=== PATIENT | female | born 1950 | race Caucasian/White ===

== ENCOUNTER → 2018-01-02 12:44 | Outpatient (CLI) | payer MEDICARE, OTHER, SELFPAY ==
--- NOTE | 2018-01-02 12:54 | HPBI_ITS ---
MAMMOGRAPHY - BILATERAL SCREENING REASON FOR EXAM: Female, 67 years old. Routine annual screening examination. PERTINENT HISTORY: Mother with breast cancer. TECHNIQUE: Digital bilateral breast bautista (3D mammographic acquisition) in the CC and MLO projections. 2-D mediolateral oblique (MLO) and craniocaudad (CC) views of both breasts were obtained. CAD: Full Field Digital Mammography with Computer Added Detection was performed. COMPARISON: Comparison is made with prior study dated May 09, 2016. FINDINGS: Breast Composition: There are scattered areas of fibroglandular density. There are no dominant masses or suspicious calcifications. Stable benign-appearing bilateral axillary lymph nodes. No other significant abnormalities are identified. There has been no significant change since the prior study. HPBI/SCREENING MAMM (CAD), BILAT IMPRESSION: Stable bilateral screening mammogram. Yearly follow-up mammogram recommended. (A) ASSESSMENT CATEGORY: BIRADS Category 2: Benign. A letter regarding these results will be sent to the patient by the facility within 30 days. Approximately 10% of breast cancers are not detected by mammography. A normal mammogram should not delay biopsy of a clinically suspicious abnormality. [id number] Electronically Signed: Konrad Ham MD at 14:25 EST Tel [phone], Service support ,
--- NOTE | 2018-01-02 12:57 | HPBD_ITS ---
STUDY: DUAL ENERGY X-RAY ABSORPTIOMETRY / DXA REASON FOR EXAM: Female, 67 years old. The patient is postmenopausal. Loss of height. TECHNIQUE: Bone Mineral Density (BMD) measurements of lumbar spine and bilateral hips were obtained. COMPARISON: Comparison is made with prior study dated September 01, 2015. FINDINGS: Lumbar Spine (L1-L4): g/cm2 (1.142) / T-score (-0.2) / Z-score (1.4) Findings are suggestive of normal bone density with a low fracture risk. Left Femur Total: g/cm2 (1.198) / T-score (1.5) / Z-score (2.8) Left Femoral Neck: g/cm2 (1.188) / T-score (1.1) / Z-score (2.7) Right Femur Total: g/cm2 (1.211) / T-score (1.6) / Z-score (2.9) Right Femoral Neck: g/cm2 (1.112) / T-score (0.4) / Z-score (2.1) The T-Scores on the most recent prior examination were: Lumbar Spine (L1-L4): There has been worsening of bone density since the previous examination. Left Femur Total: which represents an improvement of 3.8%. Right Femur Total: which represents no significant change. . HPBD/Dexa Bone Density Study (HP) IMPRESSION: The patient is considered normal as outlined below according to World Nomi Organization (WHO) criteria with a low fracture risk. There has been improvement of bone density since the previous examination. Reference Information: The T-score is the number of standard deviations above or below the standard which is normal for young adults at their peak bone mineral density. The World Health Organization (WHO) interprets the T-scores as follows: Above -1 Normal bone density Between -1 and -2.5 Osteopenia Equal to / or below -2.5 Osteoporosis As a practical clinical guideline, osteopenia may be graded as follows: Mild -1 through -1.5 Moderate -1.6 through -2.0 Severe -2.1 through -2.4 The Z-score is the number of standard deviations above or below age-matched controls. A Z-score of less than -1.5 would be considered abnormal. References: 1. NIH Osteoporosis and Related Bone Diseases http://www.osteo.org 2. International Society for Clinical Densitometry http://www.iscd.org 3. National Osteoporosis Foundation http://www.nof.org Electronically Signed: Konrad Ham MD at 15:16 EST Tel [phone], Service support ,
== END ==
PROVIDERS: Family Provider Internal Medicine; PCP Internal Medicine; Visit Provider Internal Medicine
DX: Z12.31 Encounter for screening mammogram for malignant neoplasm of breast (principal); Z78.0 Asymptomatic menopausal state
CPT/HCPCS: 77063; 77067; 77080

== ENCOUNTER 2018-04-15 09:05 | Emergency (ER) | payer MEDICARE, OTHER, SELFPAY ==
[2018-04-15 09:06] VITALS: BP 192/126; PULSE 75; RESP 16; TEMP 36.5; O2SAT 99; BMI 26.8
[2018-04-15 09:14] VITALS: O2SAT 98
--- NOTE | 2018-04-15 09:19 | RAD_ITS ---
STUDY: X-RAY CHEST REASON FOR EXAM: Female, 67 years old. Shortness of breath and tachycardia. TECHNIQUE: Single AP portable view of the chest. COMPARISON: None. FINDINGS: EKG electrodes are seen. The lungs are clear and expanded. There is no demonstrated pleural abnormality. Normal size heart. Normal mediastinum and lei. Normal visualized pulmonary arteries. There is atherosclerotic tortuosity of the aortic arch and descending thoracic aorta. Normal visualized thoracic spine. Normal visualized ribs, clavicles, and shoulders. There is no demonstrated abnormality of the visualized soft tissue structures of the upper abdomen. RAD/Chest 1 View (Portable) IMPRESSION: No acute abnormality is present. Electronically Signed: Konrad Ham MD at 10:10 EDT Tel [phone], Service support ,
--- NOTE | 2018-04-15 09:19 | EKG12_ITS ---
Test Reason : SOB Blood Pressure : / mmHG Vent. Rate : 062 BPM Atrial Rate : 062 BPM P-R Int : 120 ms QRS Dur : 090 ms QT Int : 414 ms P-R-T Axes : 050 022 021 degrees QTc Int : 420 ms Normal sinus rhythm Nonspecific ST abnormality Abnormal ECG Confirmed by ALLA MCKEON, JESS ([id number]), research editor RUFINO MOLINA ([id number]) on 04/17/2018 8:56:39 AM Referred By: SHAY Confirmed By:JESS GOLD MD
[2018-04-15 09:38] VITALS: PULSE 62; RESP 16
[2018-04-15 09:38] LABS: Absolute Neutrophil Count 3.1 X10^3/uL (2.0-7.7); Basophil# 0.04 X10^3/uL; Basophil% 0.8 % (0-1); Eosinophil# 0.14 X10^3/uL; Eosinophils% 2.7 % (0-5); Hematocrit 44.1 % (37-47); Mean Corpuscular Hgb 33.5 pg (27.0-32.0); Mean Corpuscular Volume 98.4 fL (81-99); Mean Platelet Vol. 8.8 fl (6.2-12.0); Monocyte# 0.48 X10^3/uL; Monocyte% 9.3 % (0-10); Neutrophil # 3.11 X10^3/uL (2.7-7.7); Platelet Count 190 K/mm3 (150-450); RBC Distribution Width SD 43.1 fl (35.1-43.9); Red Blood Count 4.48 M/mm3 (4.2-5.4); White Blood Count 5.2 K/mm3 (4.4-11.0)
[2018-04-15] MEDS: Ipratropium/Albuterol Sulfate 3 ML AMPUL.NEB INHALATION (09:38)
[2018-04-15 09:39] LABS: POSITIVE COUNT NO; POSITIVE DIFFERENTIAL NO; POSITIVE MORPHOLOGY NO
[2018-04-15 10:01] LABS: Anion Gap 10 (5-15); BUN 23 mg/dL (7-18); BUN/Creat Ratio 41.4 RATIO (10-20); Calcium,Total 9.1 mg/dL (8.5-10.1); Chloride 104 mmol/L (98-107); Creatinine, Serum 0.56 mg/dL (0.55-1.02); EST Glomerular Filtration Rate 116 mL/min (>60); Est Glom Filt Rate - Afr Amer 140 mL/min (>60); Estimated Creatinine Clearance 49.12 ml/min; Glucose 98 mg/dL (74-106); Potassium 3.3 mmol/L (3.5-5.1); Sodium Level 142 mmol/L (136-145)
--- NOTE | 2018-04-15 10:43 | ED.DCSUM_ITS ---
- ER Visit Summary Date of Service: 04/15/18 Chief Complaint: [Shortness of breath] History of Present Illness: The patient is a 67 F [presents the emergency department complaint of shortness of breath that started this morning upon awakening. Patient states that she felt like maybe her heart was racing and she checked her pulse and it was in the mid 80s. Patient states this is fast for her. Patient also states that she just feels like she cannot get a full deep breath. She denies any chest pain. Patient states that she has been under increased stress of late as her sisters been sick. Patient denies recent illness. Patient denies fever or cough. Patient has not had recent travel or surgery.] Physical Examination: [HEENT-PERRLA, EOMI. Cranial nerves II through XII grossly intact. TMs clear. Mucous membranes moist. No adenopathy. Cardiovascular-regular rate and rhythm without murmur or ectopy Lungs-clear to auscultation, chest wall stable without crepitus or subcu emphysema Abdomen-normoactive bowel sounds, soft, nontender, no rebound or rigidity, no peritoneal signs. Extremities-intact ?4, normal range of motion, normal pulses, atraumatic]. Negative Homans sign. Test Results: [EKG obtained on arrival showed sinus rhythm with a ventricular rate of 62 bpm with some nonspecific ST changes noted. CBC with differential was normal. Chemistries unremarkable other than a slightly depressed potassium at 3.3 for which she refused any potassium here as she states she has some potassium at home she can take. Troponin was less than 0.015. D-dimer was 0.60 and when adjusted for age is considered normal. Patient's chest x-ray was normal.] Emergency Department Course and Treatment: [Patient given a breathing treatment however she does not feel that that made any difference in her symptomatology. Patient states that she feels much improved overall and feels that just being here in a safe environment has helped her. Patient states that she does feel just will be jittery or anxious but overall feels much improved.] Treatment Plan: [I had a long discussion with the patient and to discuss possible admission for further workup and evaluation of her dyspnea such as trying to rule out cardiac etiology. Patient feels that her symptoms are likely anxiety related and does not want to be admitted at this point. Patient has not been having exertional dyspnea or chest pain. Patient is comfortable with going home and following up with her primary care physician or return if symptoms return or worsen.] Disposition: [Discharged home in stable condition.] Impression: [Dyspnea-resolved Anxiety] This note was generated with [employer] dictation software. It may contain incorrect words, spelling, and punctuation that were not noted in review of the chart prior to signing ED Disposition - Plan for ED Patient: Chief Complaint: Shortness of Breath Referrals: Jerrica Solis DO [Primary Care Provider] -
--- NOTE | 2018-04-15 10:43 | ED.DEP ---
ED Disposition - Plan for ED Patient: Chief Complaint: Shortness of Breath Instructions: ED Dyspnea Shortness of Breath, ED Stress React Referrals: Jerrica Solis DO [Primary Care Provider] - 3-5 Days
[2018-04-15 10:51] VITALS: BP 157/86; PULSE 83; RESP 16; O2SAT 98
== END 2018-04-15 10:51 | disposition home or self-care (01) ==
LOC: ED 09:23
PROVIDERS: Emergency Provider Emergency Medicine; Family Provider Internal Medicine; PCP Internal Medicine
DX: R06.00 Dyspnea, unspecified (principal); F41.9 Anxiety disorder, unspecified; E87.6 Hypokalemia; I10 Essential (primary) hypertension; Q21.1 Atrial septal defect; Z79.899 Other long term (current) drug therapy
CPT/HCPCS: 71045; 80048; 84484; 85025; 85379; 93005; 94640; 99284; A4216

== ENCOUNTER → 2018-06-18 15:28 | Outpatient (CLI) | payer MEDICARE, OTHER, SELFPAY ==
[2018-06-18 17:28] LABS: Anion Gap 12 (5-15); BUN 20 mg/dL (7-18); BUN/Creat Ratio 34.6 RATIO (10-20); Calcium,Total 9.2 mg/dL (8.5-10.1); Chloride 103 mmol/L (98-107); Creatinine, Serum 0.58 mg/dL (0.55-1.02); EST Glomerular Filtration Rate 110 mL/min (>60); Est Glom Filt Rate - Afr Amer 133 mL/min (>60); Glucose 101 mg/dL (74-106); Potassium 3.5 mmol/L (3.5-5.1); Sodium Level 141 mmol/L (136-145)
== END ==
PROVIDERS: Family Provider Internal Medicine; PCP Internal Medicine; Visit Provider Internal Medicine Cardiovascular Disease
DX: I10 Essential (primary) hypertension (principal)
CPT/HCPCS: 36415; 80048

== ENCOUNTER → 2018-07-17 13:27 | Outpatient (CLI) | payer MEDICARE, OTHER, SELFPAY ==
[2018-07-17 16:05] LABS: Anion Gap 8 (5-15); BUN 19 mg/dL (7-18); BUN/Creat Ratio 30.1 RATIO (10-20); Calcium,Total 8.8 mg/dL (8.5-10.1); Chloride 105 mmol/L (98-107); Creatinine, Serum 0.63 mg/dL (0.55-1.02); EST Glomerular Filtration Rate 100 mL/min (>60); Est Glom Filt Rate - Afr Amer 121 mL/min (>60); Glucose 86 mg/dL (74-106); Potassium 3.9 mmol/L (3.5-5.1); Sodium Level 138 mmol/L (136-145)
== END ==
PROVIDERS: Family Provider Internal Medicine; PCP Internal Medicine; Visit Provider Internal Medicine Cardiovascular Disease
DX: I10 Essential (primary) hypertension (principal); Q21.1 Atrial septal defect; I47.1 Supraventricular tachycardia; I34.1 Nonrheumatic mitral (valve) prolapse
CPT/HCPCS: 36415; 80048

== ENCOUNTER → 2018-08-02 15:01 | Outpatient (CLI) | payer MEDICARE, OTHER, SELFPAY ==
[2018-08-02 15:03] LABS: Mucous, Urine 0 SEEN /hpf (<or=2+); Red Blood Cells-Urine 0 SEEN /hpf (0-5)
[2018-08-02 15:49] LABS: Color, Urine Yellow (Yellow); Glucose, Dipstick Normal (Normal); Ketone-Dipstick Negative (Negative); Leukocyte Esterase-Dipstick 500 /ul (Negative); Nitrite-Dipstick Positive (Negative); Occult Blood-Urine 250 /ul (Negative); Protein-Dipstick 15 mg/dl (Negative); Specific Gravity, Urine 1.005 (1.002-1.030); Urine Bilirubin Dipstick Negative (Negative); Urine Clarity Clear (Clear); Urine Urobilinogen Normal (Normal)
[2018-08-02 16:03] LABS: Bacteria 2+ /hpf (None Seen); Squamous Epithelial Cells - UA 0-5 SEEN /hpf (5-10); White Blood Cells 10-25 SEEN /hpf (0-5)
== END ==
PROVIDERS: Family Provider Internal Medicine; PCP Internal Medicine; Referring Provider Physician Assistant; Visit Provider Physician Assistant
DX: N39.0 Urinary tract infection, site not specified (principal); R30.0 Dysuria
CPT/HCPCS: 81001; 87086; 87088; 87186

== ENCOUNTER → 2018-11-24 16:14 | Outpatient (CLI) | payer MEDICARE, OTHER, SELFPAY ==
[2018-08-18 12:50] VITALS: BMI 27.8
[2018-11-24 18:19] LABS: CRP < 2.90 mg/L (0.0-3.0)
[2018-11-26 18:21] LABS: Endomysial Antibody IgA Negative (Negative)
[2018-11-27 11:19] LABS: Immunoglobulin A 435 mg/dL (87-352); t-Transglutaminase IgA <2 U/mL (0-3)
== END ==
PROVIDERS: Family Provider Internal Medicine; PCP Internal Medicine; Referring Provider Internal Medicine Gastroenterology; Visit Provider Internal Medicine Gastroenterology
DX: R19.7 Diarrhea, unspecified (principal)
CPT/HCPCS: 36415; 82784; 83516; 86140; 86255

== ENCOUNTER → 2019-01-08 16:15 | Outpatient (CLI) | payer MEDICARE, OTHER, SELFPAY ==
[2018-12-22 14:50] VITALS: BMI 27.8
[2019-01-13 11:26] LABS: Fats, Neutral Normal (.); Fats, Total Normal (.)
== END ==
PROVIDERS: Family Provider Internal Medicine; PCP Internal Medicine; Referring Provider Internal Medicine Gastroenterology; Visit Provider Internal Medicine Gastroenterology
DX: R19.7 Diarrhea, unspecified (principal)
CPT/HCPCS: 82705

== ENCOUNTER → 2019-03-09 08:34 | Outpatient (CLI) | payer MEDICARE, OTHER, SELFPAY ==
[2018-12-22 14:50] VITALS: BMI 27.8
--- NOTE | 2019-03-09 08:37 | NM_ITS ---
CLINICAL: 68-year-old female with reported history of postprandial abdominal bloating. SEMI-SOLID PHASE 99m Tc SULFUR COLLOID GASTRIC EMPTYING STUDY COMPARISON: None available FINDINGS: The patient was administered 1.1 mCi of 99m Tc sulfur colloid mixed with oatmeal and consumed per os. Image acquisitions in the anterior-posterior projections were obtained for 60 minutes. There is prompt visualization of the stomach. There is no gastroesophageal reflux identified. First order kinetics are maintained throughout the duration of the acquisitions. The T1/2 linear fit was calculated to be 73.19 minutes, (Normal: 12-56 minutes). NM/Gastric Emptying Study IMPRESSION: 1. ABNORMAL 99m Tc sulfur colloid semi-solid phase (oatmeal) gastric emptying imaging examination. A. There is delayed semi-solid phase gastric emptying compared to normal controls with maintained first order kinetics throughout all components of the examination. (Jony et al, J Nucl Med Tech 38: 186, 2010). Electronically Signed: Jose Camacho DO at 23:41 EDT Tel , Service support ,
== END ==
PROVIDERS: Family Provider Internal Medicine; PCP Internal Medicine; Referring Provider Internal Medicine Gastroenterology; Visit Provider Internal Medicine Gastroenterology
DX: R11.2 Nausea with vomiting, unspecified (principal)
CPT/HCPCS: 78264; A9541

== ENCOUNTER → 2019-09-08 15:08 | Outpatient (CLI) | payer MEDICARE, OTHER, SELFPAY ==
[2019-08-25 14:31] VITALS: BMI 25.7
--- NOTE | 2019-09-08 15:11 | BI_ITS ---
MAMMOGRAPHY - BILATERAL SCREENING REASON FOR EXAM: Female, 69 years old. Routine annual screening examination. PERTINENT HISTORY: Non-contributory. TECHNIQUE: Digital bilateral breast jackie (3D mammographic acquisition) in the CC and MLO projections. 2-D mediolateral oblique (MLO) and craniocaudad (CC) views of both breasts were obtained. CAD: Full Field Digital Mammography with Computer Added Detection was performed. COMPARISON: Comparison is made with prior study dated January 02, 2018. FINDINGS: Breast Composition: There are scattered areas of fibroglandular density. There are no dominant masses or suspicious calcifications. Stable 3 mm well-defined nodule in the axillary region of the left breast. This may represent either a tiny cyst or a tiny lymph node. Stable benign-appearing bilateral axillary lymph nodes. No other significant abnormalities are identified. There has been no significant change since the prior study. BI/SCREEN MAMM (CAD) W/JACKIE BILAT IMPRESSION: Stable bilateral screening mammogram. Yearly follow-up mammogram recommended. (A) ASSESSMENT CATEGORY: BIRADS Category 2: Benign. A letter regarding these results will be sent to the patient by the facility within 30 days. Approximately 10% of breast cancers are not detected by mammography. A normal mammogram should not delay biopsy of a clinically suspicious abnormality. [id number] Electronically Signed: Konrad Ham, at 8:43 EST , Service support ,
== END ==
PROVIDERS: Family Provider Internal Medicine; PCP Internal Medicine; Referring Provider Nurse Practitioner Women's Health; Visit Provider Nurse Practitioner Women's Health
DX: Z12.31 Encounter for screening mammogram for malignant neoplasm of breast (principal)
CPT/HCPCS: 77063; 77067

== ENCOUNTER → 2020-11-11 13:50 | Outpatient (CLI) | payer MEDICARE, OTHER, SELFPAY ==
[2020-08-10 14:04] VITALS: BMI 25.8
[2020-11-09 12:54] VITALS: BMI 26.1
--- NOTE | 2020-11-11 13:57 | BI_ITS ---
MAMMOGRAPHY - BILATERAL SCREENING REASON FOR EXAM: Female, 70 years old. Routine annual screening examination. PERTINENT HISTORY: Mother with breast cancer. TECHNIQUE: Digital bilateral breast jackie (3D mammographic acquisition) in the CC and MLO projections. 2-D mediolateral oblique (MLO) and craniocaudad (CC) views of both breasts were obtained. CAD: Full Field Digital Mammography with Computer Added Detection was performed. COMPARISON: Comparison is made with prior examination dated 09/08/2019 and 01/02/2018. FINDINGS: Breast Composition: There are scattered areas of fibroglandular density. There are no dominant masses or suspicious calcifications. Stable small benign appearing bilateral axillary lymph nodes. No other significant abnormalities are identified. There has been no significant change since the prior study. BI/SCRN MAMM (CAD)W/JACKIE BILAT IMPRESSION: Stable bilateral screening mammogram. Yearly follow-up mammogram recommended. (A) ASSESSMENT CATEGORY: BIRADS Category 2: Benign. A letter regarding these results will be sent to the patient by the facility within 30 days. Approximately 10% of breast cancers are not detected by mammography. A normal mammogram should not delay biopsy of a clinically suspicious abnormality. [id number] Electronically Signed: Konrad Ham, at 15:34 EST , Service support ,
== END ==
PROVIDERS: PCP Internal Medicine; Visit Provider Nurse Practitioner Women's Health
DX: Z12.31 Encounter for screening mammogram for malignant neoplasm of breast (principal); Z80.3 Family history of malignant neoplasm of breast
CPT/HCPCS: 77063; 77067

== ENCOUNTER 2021-12-20 14:44 | Outpatient (CLI) | payer MEDICARE, OTHER, SELFPAY | END 2021-12-20 23:59 | disposition home or self-care (01) | LOC: OPBI 14:44 → LABSPEC 12-21 10:41 | PROVIDERS: PCP Internal Medicine; Visit Provider Nurse Practitioner Women's Health | DX: R39.15 Urgency of urination (principal) | CPT/HCPCS: 87086; 87088 ==

== ENCOUNTER 2022-01-01 13:38 | Outpatient (CLI) | payer MEDICARE, OTHER, SELFPAY ==
--- NOTE | 2022-01-01 13:41 | BI_ITS ---
MAMMOGRAPHY - BILATERAL SCREENING REASON FOR EXAM: Female, 71 years old. Routine annual screening examination. PERTINENT HISTORY: Mother with breast cancer. TECHNIQUE: Digital bilateral breast jackie (3D mammographic acquisition) in the CC and MLO projections. 2-D mediolateral oblique (MLO) and craniocaudad (CC) views of both breasts were obtained. CAD: Full Field Digital Mammography with Computer Added Detection was performed. COMPARISON: Comparison is made with prior study dated 05/11/2021 and 09/08/2019. FINDINGS: Breast Composition: There are scattered areas of fibroglandular density. There are no dominant masses or suspicious calcifications. Stable small benign appearing bilateral axillary lymph nodes. No other significant abnormalities are identified. There has been no significant change since the prior study. BI/SCRN MAMM (CAD)W/JACKIE BILAT IMPRESSION: Stable bilateral screening mammogram. Yearly follow-up mammogram recommended. (A) ASSESSMENT CATEGORY: BIRADS Category 2: Benign. A letter regarding these results will be sent to the patient by the facility within 30 days. Approximately 10% of breast cancers are not detected by mammography. A normal mammogram should not delay biopsy of a clinically suspicious abnormality. [id number] Electronically Signed: Konrad Ham MD at 14:27 EST ,
== END 2022-01-01 23:59 | disposition home or self-care (01) ==
LOC: OPBI 13:39
PROVIDERS: PCP Internal Medicine; Visit Provider Nurse Practitioner Women's Health
DX: Z12.31 Encounter for screening mammogram for malignant neoplasm of breast (principal); Z80.3 Family history of malignant neoplasm of breast
CPT/HCPCS: 77063; 77067

== ENCOUNTER 2022-02-10 09:35 | Outpatient (CLI) | payer MEDICARE, OTHER, SELFPAY ==
--- NOTE | 2022-02-10 09:38 | CT_ITS ---
STUDY: CT BRAIN WITHOUT CONTRAST REASON FOR EXAM: Female, 71 years old. SYNCOPE RADIATION DOSAGE (If Supplied By Facility): CTDIvol = ( 44.99 ) mGy, DLP = ( 796.11 ) mGycm TECHNIQUE: Transaxial CT imaging of the brain was performed without administration of intravenous contrast material. Individualized dose optimization techniques were used for this CT. COMPARISON: No relevant priors. FINDINGS: Normal soft tissue structures. Normal calvarium. Mild prominence of the ventricles and cortical sulci appropriate for the patient''s age. Normal white matter tracts of the cerebral hemispheres. Normal basal ganglia and thalami. Normal brainstem. Normal cerebellum. There is no intracranial hemorrhage. There are no findings of an acute ischemic infarction. Mild mucosal thickening of the ethmoid and maxillary sinuses. CT/Brain/Head without Contrast IMPRESSION: 1. No acute intracranial process. 2. Mild sinus disease. Electronically Signed: Hans Way MD at 10:43 EDT ,
== END 2022-02-10 23:59 | disposition home or self-care (01) ==
LOC: CT 09:36
PROVIDERS: PCP Internal Medicine; Referring Provider Internal Medicine; Visit Provider Internal Medicine
DX: R55 Syncope and collapse (principal)
CPT/HCPCS: 70450

== ENCOUNTER → 2022-02-21 | Outpatient (CLI) | payer MEDICARE, OTHER, SELFPAY ==
--- NOTE | 2022-02-21 12:44 | ECHOD_ITS ---
Reason For Study: SYNCOPE Procedure This was a 2D Doppler, Color Flow transthoracic echocardiogram. The exam was of adequate technical quality. Exam performed in department. Left Ventricle Normal LV size. Left ventricular systolic function is normal. The estimated ejection fraction is 60 %. Transmitral diastolic flow velocities suggest moderate (stage 2) diastolic dysfunction (pseudonormal pattern). No regional wall motion abnormalities noted. Right Ventricle Normal RV size. Normal systolic function. Atria The left atrium is moderately enlarged. The right atrium is mildly enlarged. Aneurysmal atrial septum. Mitral Valve There is mild mitral annular calcification. Mild diffuse mitral valve thickening. Mild-Moderate (1- 2+) mitral valve insufficiency. Tricuspid Valve Normal tricuspid valve. Mild to moderate (1-2+) tricuspid valve insufficiency. Right ventricular systolic pressure estimated to be 34 mmHg. Aortic Valve Trisinus/trileaflet aortic valve. Normal aortic valve. Trivial aortic valve insufficiency. Pulmonic Valve The pulmonic valve is not well visualized. Great Vessels Normal sized aortic root. Pericardium/Pleural No pericardial effusion. MMode/2D Measurements & Calculations LVIDd: 4.8 cm IVSd: 0.70 cm Ao root diam: 3.3 cm LVIDs: 3.2 cm LVPWd: 0.88 cm RVDd: 3.6 cm FS: 33.5 % LAV(MOD-bp): 88.6 ml LVAd ap4: 28.1 cm2 SV(MOD-sp4): 56.2 ml LAV(MOD-bp) Indexed: 48.8 ml/m2 LVLd ap4: 7.1 cm LAV(MOD-sp2): 86.9 ml EDV(MOD-sp4): 87.9 ml LAV(MOD-sp4): 87.0 ml EDV(sp4-el): 94.0 ml LVAs ap4: 14.7 cm2 LVLs ap4: 5.7 cm ESV(MOD-sp4): 31.7 ml ESV(sp4-el): 32.5 ml EF(MOD-sp4): 63.9 % EF(sp4-el): 65.4 % SV(sp4-el): 61.5 ml LA A4 area: 26.4 cm2 LA dimension(2D): 3.9 cm RA A4 area: 20.8 cm2 Time Measurements MV dec time: 0.20 sec Doppler Measurements & Calculations MV E max brennan: 87.3 cm/sec Lat Peak E' Brennan: 10.8 cm/sec Med Peak E' Brennan: 6.9 cm/sec MV A max brennan: 58.6 cm/sec E/E' lat: 8.1 E/E' med: 12.6 MV E/A: 1.5 Ao V2 max: 119.6 cm/sec AI max brennan: 412.9 cm/sec LV V1 max: 110.7 cm/sec Ao max P.7 mmHg AI max P.2 mmHg LV V1 max P.9 mmHg AI dec slope: 215.6 cm/sec2 AI P1/2t: 561.1 msec PA V2 max: 95.7 cm/sec PI end-d brennan: 94.7 cm/sec TR max brennan: 277.3 cm/sec TR max P.8 mmHg ECHO/Echo Complete Interpretation Summary Left ventricular systolic function is normal. The estimated ejection fraction is 60 %. The left atrium is moderately enlarged. The right atrium is mildly enlarged. There is mild mitral annular calcification. Mild diffuse mitral valve thickening. Mild-Moderate (1-2+) mitral valve insufficiency. Mild to moderate (1-2+) tricuspid valve insufficiency. Trivial aortic valve insufficiency. Right ventricular systolic pressure estimated to be 34 mmHg. Transmitral diastolic flow velocities suggest diastolic dysfunction (pseudonorm al pattern). Comment: The TTE from 01/29/2006 demonstrated a faintly positive agitated salin e contrast study for right to left interatrial shunt c/w small PFO vs ASD. Ordering Physician: Jerrica Solis Referring Physician: Jerrica Solis Performed By: Anita Ovalle RDCS
== END | disposition home or self-care (01) ==
PROVIDERS: PCP Internal Medicine; Referring Provider Internal Medicine; Visit Provider Internal Medicine
DX: R55 Syncope and collapse (principal)
CPT/HCPCS: 93306

== ENCOUNTER → 2023-01-02 | Outpatient (CLI) | payer MEDICARE, OTHER, SELFPAY ==
--- NOTE | 2023-01-02 11:43 | BI_ITS ---
MAMMOGRAPHY - BILATERAL SCREENING REASON FOR EXAM: Female, 72 years old. Routine annual screening examination. PERTINENT HISTORY: Mother with breast cancer. TECHNIQUE: Digital bilateral breast jackie (3D mammographic acquisition) in the CC and MLO projections. 2-D mediolateral oblique (MLO) and craniocaudad (CC) views of both breasts were obtained. CAD: Full Field Digital Mammography with Computer Added Detection was performed. COMPARISON: Comparison is made with prior study of January 01, 2022 and November 11, 2020. FINDINGS: Breast Composition: There are scattered areas of fibroglandular density. There are no dominant masses or suspicious calcifications. Stable small benign-appearing bilateral axillary lymph nodes. No other significant abnormalities are identified. There has been no significant change since the prior study. BI/SCRN MAMM (CAD)W/JACKIE BILAT IMPRESSION: Stable bilateral screening mammogram. Yearly follow-up mammogram recommended. (A) ASSESSMENT CATEGORY: BIRADS Category 2: Benign. A letter regarding these results will be sent to the patient by the facility within 30 days. Approximately 10% of breast cancers are not detected by mammography. A normal mammogram should not delay biopsy of a clinically suspicious abnormality. [id number] Electronically Signed: Konrad Ham MD at 13:55 EST ,
== END | disposition home or self-care (01) ==
LOC: OPBI 11:41
PROVIDERS: PCP Internal Medicine; Visit Provider Nurse Practitioner Women's Health
DX: Z12.31 Encounter for screening mammogram for malignant neoplasm of breast (principal); Z80.3 Family history of malignant neoplasm of breast
CPT/HCPCS: 77063; 77067

== ENCOUNTER → 2024-01-06 | Outpatient (CLI) | payer MEDICARE, OTHER, SELFPAY ==
--- NOTE | 2024-01-06 12:39 | BI_ITS ---
MAMMOGRAPHY - BILATERAL SCREENING REASON FOR EXAM: Female, 73 years old. Routine annual screening examination. PERTINENT HISTORY: Mother with breast cancer. TECHNIQUE: Digital bilateral breast jackie (3D mammographic acquisition) in the CC and MLO projections. 2-D mediolateral oblique (MLO) and craniocaudad (CC) views of both breasts were obtained. CAD: Full Field Digital Mammography with Computer Added Detection was performed. COMPARISON: Comparison is made with prior study dated January 02, 2023 and January 01, 2022. FINDINGS: Breast Composition: The breasts are almost entirely fatty. There are no dominant masses or suspicious calcifications. Stable small benign-appearing bilateral axillary lymph nodes. No other significant abnormalities are identified. There has been no significant change since the prior study. BI/SCRN MAMM (CAD)W/JACKIE BILAT IMPRESSION: Stable bilateral screening mammogram. Yearly follow-up mammogram recommended. (A) ASSESSMENT CATEGORY: BIRADS Category 2: Benign. A letter regarding these results will be sent to the patient by the facility within 30 days. Approximately 10% of breast cancers are not detected by mammography. A normal mammogram should not delay biopsy of a clinically suspicious abnormality. [id number] Electronically Signed: Konrad Ham MD at 8:34 EDT ,
== END | disposition home or self-care (01) ==
LOC: OPBI 12:39
PROVIDERS: PCP Internal Medicine; Referring Provider Nurse Practitioner Women's Health; Visit Provider Nurse Practitioner Women's Health
DX: Z12.31 Encounter for screening mammogram for malignant neoplasm of breast (principal); Z80.3 Family history of malignant neoplasm of breast
CPT/HCPCS: 77063; 77067

== ENCOUNTER → 2024-12-24 | Outpatient (CLI) | payer MEDICARE, OTHER, SELFPAY ==
[2024-12-24 15:59] LABS: ALB/GLOB Ratio 1.2 RATIO (0.9-2.4); AST(SGOT) 23 U/L (<=31); Alanine Aminotransfer ALT/SGPT 18 U/L (<=34); Albumin, Serum 4.2 g/dL (3.4-4.8); Alkaline Phosphatase 53 U/L (35-104); Anion Gap 9 (5-15); BUN 27 mg/dL (4-19); BUN/Creat Ratio 43.2 RATIO (10-20); Calcium 9.9 mg/dL (7.6-11.0); Carbon Dioxide 25.8 mmol/L (22.0-29.0); Chloride 105 mmol/L (96-108); Creatinine, Serum 0.6 mg/dL (0.6-1.0); EST Glomerular Filtration Rate 93 (>60); Globulin 3.6 g/dL (2.2-4.2); Glucose 96 mg/dL (70-99); Magnesium 2.1 mg/dL (1.5-2.2); Potassium 3.9 mmol/L (3.3-5.1); Protein, Total 7.9 g/dL (5.9-8.4); Sodium Level 140 mmol/L (133-145); Total Bilirubin 0.54 mg/dL (0.00-1.30)
== END | disposition home or self-care (01) ==
LOC: LAB 15:09
PROVIDERS: PCP Internal Medicine; Referring Provider Internal Medicine Cardiovascular Disease; Visit Provider Internal Medicine Cardiovascular Disease
DX: I47.10 Supraventricular tachycardia, unspecified (principal); I10 Essential (primary) hypertension; R00.2 Palpitations
CPT/HCPCS: 36415; 80053; 83735

== ENCOUNTER → 2025-01-06 | Outpatient (CLI) | payer MEDICARE, OTHER, SELFPAY ==
--- NOTE | 2025-01-06 13:00 | BI_ITS ---
PROCEDURE: SCRN MAMM (CAD)W/JACKIE BILAT REASON FOR EXAM: F, Age 74 y/o , SCREENING. Mother with breast cancer. TECHNIQUE: Bilateral screening digital breast tomosynthesis with 2D and 3D images. Computer aided detection. COMPARISON: Prior exam(s) dating back to January 06, 2024.. FINDINGS: The breasts are almost entirely fatty. Stable small bilateral axillary lymph nodes. Stable examination. No suspicious masses, areas of developing architectural distortion, or suspicious calcifications. BI/SCRN MAMM (CAD)W/JACKIE BILAT IMPRESSION: BI-RADS 2: BENIGN. RECOMMEND ANNUAL MAMMOGRAPHIC SCREENING. Follow-up code: Routine Follow-up The patient will be notified of the results by letter. Reading Location: [place] [id number]
== END | disposition home or self-care (01) ==
PROVIDERS: PCP Internal Medicine; Referring Provider Nurse Practitioner Women's Health; Visit Provider Nurse Practitioner Women's Health
DX: Z12.31 Encounter for screening mammogram for malignant neoplasm of breast (principal)
CPT/HCPCS: 77063; 77067

== ENCOUNTER → 2025-01-25 | Outpatient (CLI) | payer MEDICARE, OTHER, SELFPAY ==
--- NOTE | 2025-01-25 12:40 | ECHOD_ITS ---
Reason For Study Reason For Study: MVP Procedure This was a 2D Doppler, Color Flow transthoracic echocardiogram. Exam performed in department. Left Ventricle Normal LV size. Mild concentric left ventricular hypertrophy. The left ventricular ejection fraction is 65 %. Stage 2 diastolic dysfunction. Right Ventricle Normal right ventricle. Atria The left atrium is moderately enlarged. The right atrium is mildly enlarged. Mitral Valve Trivial mitral valve insufficiency. Tricuspid Valve Moderate (2+) tricuspid valve insufficiency. Right ventricular systolic pressure estimated to be 42 mmHg. Aortic Valve Trisinus/trileaflet aortic valve. Mild (1+) aortic valve insufficiency. Pulmonic Valve Trivial pulmonic valve insufficiency. Great Vessels Normal sized aortic root. Pericardium/Pleural No pericardial effusion. MMode/2D Measurements & Calculations LVIDd: 4.6 cm IVSd: 1.2 cm LVOT diam: 2.0 cm LVIDs: 3.0 cm LVPWd: 1.1 cm LVOT area: 3.3 cm2 RVDd: 3.8 cm FS: 33.5 % Ao root diam: 3.4 cm LAV(MOD-bp): 72.2 ml LVAd ap4: 24.9 cm2 LAV(MOD-bp) Indexed: 38.6 ml/m2 LVLd ap4: 7.5 cm LAV(MOD-sp2): 39.8 ml EDV(MOD-sp4): 66.3 ml LAV(MOD-sp4): 90.6 ml EDV(sp4-el): 69.9 ml LVAs ap4: 12.2 cm2 LVLs ap4: 5.8 cm ESV(MOD-sp4): 22.2 ml ESV(sp4-el): 21.7 ml EF(MOD-sp4): 66.5 % EF(sp4-el): 69.0 % SV(MOD-sp4): 44.1 ml SV(sp4-el): 48.3 ml LA A4 area: 27.9 cm2 SI(MOD-sp4): 23.6 ml/m2 LA dimension(2D): 4.0 cm RA A4 area: 12.4 cm2 Time Measurements MV dec time: 0.20 sec Doppler Measurements & Calculations MV E max brennan: 73.3 cm/sec Lat Peak E' Brennan: 11.7 cm/sec Med Peak E' Brennan: 6.8 cm/sec MV A max brennan: 67.5 cm/sec E/E' lat: 6.3 E/E' med: 10.8 MV E/A: 1.1 MV V2 max: 89.8 cm/sec Ao V2 max: 141.9 cm/sec MV max P.2 mmHg MV dec slope: 373.8 cm/sec2 Ao max P.1 mmHg MV V2 mean: 46.3 cm/sec Ao V2 mean: 92.3 cm/sec MV mean P.1 mmHg Ao mean P.0 mmHg MV V2 VTI: 31.6 cm Ao V2 VTI: 33.3 cm AV (velocity ratio): 0.92 MVA(VTI): 3.2 cm2 MITZI(I,D): 3.0 cm2 MITZI(V,D): 2.9 cm2 AI max brennan: 437.7 cm/sec LV V1 max: 123.7 cm/sec SV(LVOT): 100.3 ml AI max P.6 mmHg LV V1 max P.1 mmHg LV V1 mean P.4 mmHg AI dec slope: 330.8 cm/sec2 LV V1 mean: 87.0 cm/sec AI P1/2t: 387.6 msec LV V1 VTI: 30.5 cm PA V2 max: 114.9 cm/sec PI end-d brennan: 101.9 cm/sec TR max brennan: 304.4 cm/sec PA V2 mean: 81.3 cm/sec TR max P.1 mmHg ECHO/Echo Complete Interpretation Summary Mild concentric left ventricular hypertrophy. The left ventricular ejection fraction is 65 %. Stage 2 diastolic dysfunction. The left atrium is moderately enlarged. The right atrium is mildly enlarged. Moderate (2+) tricuspid valve insufficiency. Right ventricular systolic pressure estimated to be 42 mmHg. Mild (1+) aortic valve insufficiency. Ordering Physician: Gavin Acosta Referring Physician: Gavin Acosta Performed By: Yuki Doran RCS
== END | disposition home or self-care (01) ==
LOC: CVS 12:40
PROVIDERS: PCP Internal Medicine; Referring Provider Internal Medicine Cardiovascular Disease; Visit Provider Internal Medicine Cardiovascular Disease
DX: I34.1 Nonrheumatic mitral (valve) prolapse (principal)
CPT/HCPCS: 93306

== ENCOUNTER → 2025-04-14 | Outpatient (CLI) | payer MEDICARE, OTHER, SELFPAY ==
[2025-04-14 12:38] LABS: Absolute Neutrophil Count 4.7 X10^3/uL (2.0-7.7); Basophil# 0.04 X10^3/uL; Basophil% 0.5 % (0-1); Eosinophil# 0.15 X10^3/uL; Hematocrit 39.4 % (37-47); Lymphocyte % 25.8 % (19-41); Mean Corpuscular Volume 93.8 fL (81-99); Mean Platelet Vol. 9.9 fl (6.2-12.0); Monocyte# 0.54 X10^3/uL; Monocyte% 7.3 % (0-10); NRBC Flagged by Analyzer 0 % (0-5); Neutrophil # 4.71 X10^3/uL (2.7-7.7); Neutrophil % 64.1 % (47-70); Platelet Count 235 K/mm3 (150-450); RBC Distribution Width CV 12.4 % (11.6-14.6); RBC Distribution Width SD 42.5 fl (35.1-43.9); White Blood Count 7.4 K/mm3 (4.4-11.0)
[2025-04-14 13:14] LABS: Hemoglobin A1c 6.1 % (<=5.6)
[2025-04-14 13:20] LABS: ALB/GLOB Ratio 1.3 RATIO (0.9-2.4); AST(SGOT) 25 U/L (<=31); Alanine Aminotransfer ALT/SGPT 17 U/L (<=34); Albumin, Serum 4.2 g/dL (3.4-4.8); Alkaline Phosphatase 57 U/L (35-104); Anion Gap 11 (5-15); BUN 22 mg/dL (4-19); Calcium,Total 9.6 mg/dL (7.6-11.0); Carbon Dioxide 24.4 mmol/L (21.0-32.0); Chloride 105 mmol/L (98-108); Cholesterol 161 mg/dL (<=200); EST Glomerular Filtration Rate 91 (>60); Globulin 3.3 g/dL (2.2-4.2); Glucose 109 mg/dL (70-99); High Density Lipoprotein 39 mg/dL; Low Density Lipoprotein Calc. 106 mg/dL; Potassium 4.4 mmol/L (3.3-5.1); Protein, Total 7.5 g/dL (5.9-8.4); Sodium Level 140 mmol/L (133-145); Thyroid Stim Hormone (TSH) 0.746 uIU/mL (0.300-4.200); Total Bilirubin 0.68 mg/dL (0.00-1.30); Triglycerides 81 mg/dL; Very Low Density Lipoprotein 16 mg/dL (5-40); Vitamin B12 896 pg/mL (180-914); Vitamin D,25 Hydroxy 65.5 ng/mL (30-100); cholesterol:hdl ratio screen 4.16
== END | disposition home or self-care (01) ==
LOC: MFPLAB 10:01
PROVIDERS: PCP Internal Medicine; Visit Provider Family Medicine
DX: I10 Essential (primary) hypertension (principal); Z13.1 Encounter for screening for diabetes mellitus; I25.10 Atherosclerotic heart disease of native coronary artery without angina pectoris; K21.9 Gastro-esophageal reflux disease without esophagitis; R41.3 Other amnesia; E03.9 Hypothyroidism, unspecified
CPT/HCPCS: 36415; 80053; 80061; 82306; 82607; 83036; 84439; 84443; 85025

== ENCOUNTER 2025-10-11 08:39 | Outpatient (CLI) | payer MEDICARE, OTHER, SELFPAY | END 2025-10-11 23:59 | disposition home or self-care (01) | LOC: MTLAB 08:40 | PROVIDERS: PCP Family Medicine; Referring Provider Family Medicine; Visit Provider Family Medicine | DX: I10 Essential (primary) hypertension (principal); E11.9 Type 2 diabetes mellitus without complications | CPT/HCPCS: 36415; 83036; 84443 ==